=== PATIENT | male | born 1965 | race Caucasian/White ===

== ENCOUNTER 2017-12-21 08:29 | Outpatient (CLI) | payer OTHER ==
--- NOTE | 2017-12-21 16:13 | Nuclear Medicine Report ---
EXAM: BONE SCAN EXAM DATE: 12/21/2017 01:19 PM. CLINICAL HISTORY: Abnormal signal in the T12 and L4 vertebrae on lumbar spine MRI. COMPARISON: Lumbar spine MRI 11/30/2017. TECHNIQUE: Following the intravenous administration of 32.9 mCi of technetium 99m MDP and an appropri ate delay, a whole-body scan was performed in anterior and posterior projections. Site-specific spot views of the region of interest were obtained in various projections. FINDINGS: Exam Quality: Normal overall osseous radiotracer uptake. Physiological tracer uptake in bilateral col lecting systems. Skull: No focal uptake. Thorax: No focal lesions in ribs or sternum. Mild degenerative increased uptake corresponding to the right acromioclavicular joint. Pelvis: No focal lesions. Spine: No focal uptake in the cervical or thoracic or lumbar spine. Extremities: Tiny focus of increased uptake near the left lesser trochanter. IMPRESSION: 1. No abnormal spine lesions are evident. 2. Tiny focus of increased uptake near the left lesser trochanter, nonspecific. [facility] Referring Provider Line: [phone] SITE ID: [id number]
== END 2017-12-21 08:30 | disposition home or self-care (01) ==
LOC: DI 08:29
PROVIDERS: ATTEND Internal Medicine
DX: R93.8 Abnormal findings on diagnostic imaging of other specified body structures (principal)
CPT/HCPCS: 78306; A9503

== ENCOUNTER 2020-11-22 11:31 | Emergency (ER) | payer OTHER ==
[2020-11-22] MEDS ORDERED: BUFFERED LIDOCAINE 10 ML SYRINGE SUBQ STA (11:45)
--- NOTE | 2020-11-22 11:48 | ED Physician Documentation ---
History of Present Illness - Stated complaint Stated Complaint: LT TOE INJ - Chief complaint Chief Complaint: Trauma Ext - Additonal information Additional information: 55-year-old male presents the emergency department for evaluation of a left great toe injury. He was moving a dresser and the edge of his toenail was caught under the ridge of the dresser and pulled the nail back avulsing the nail bed. Did not have any blunt trauma on the toe. Denies any history of diabetes. Tetanus UTD within 1 year. On initial exam he is a partially avulsed distal great nail with bleeding around the cuticle edges. Review of Systems Constitutional: reports: Reviewed and negative Ears: reports: Reviewed and negative Nose: reports: Reviewed and negative Throat: reports: Reviewed and negative Cardiac: reports: Reviewed and negative Respiratory: reports: Reviewed and negative GI: reports: Reviewed and negative : reports: Reviewed and negative Skin: reports: Lesions (avulsion of left great toe nail) Musculoskeletal: reports: Reviewed and negative PD PAST MEDICAL HISTORY - Allergies Allergies/Adverse Reactions: Allergies Allergy/AdvReac Type Severity Reaction Status Date / Time No Known Drug Allergies Allergy Verified 11/22/20 11:39 PD ED PE EXPANDED - Derm Derm: Other (Left great nail partially avulsed distally with the distal quick exposed. However 85% of the nail is well attached to the nail bed. bleeding noted cuticle edges) Results - Vitals Vitals: Vital Signs - 24 hr 11/22/20 11:34 Temperature 36.5 C Heart Rate 72 Respiratory 14 Rate Blood Pressure 123/108 H O2 Saturation 100 Oxygen O2 Source Room air Procedures - General procedure General procedure: Left great nail was anesthetized with 1% lidocaine. Following this the distal nail was clipped to the avulsed edge of the distal quick. There is no subungual hematoma under the remaining greater nail. Routine wound care return precautions discussed. Tetanus was up-to-date last year. PD MEDICAL DECISION MAKING - ED course Complexity details: d/w patient ED course: 55-year-old male presents the emergency department with a left great nail injury sustained when moving a dresser which subsequently lifted the distal nail from the cuticle. This resulted in a partial distal nail avulsion. There is no underlying subungual hematoma. The great toe was anesthetized with 1% lidocaine and the distal nail was simply cut to the avulsed edge of the cuticle. bacitracin applied. Routine wound care and emergent return precautions were discussed. Departure - Departure Disposition: 01 Home, Self Care Clinical Impression: Nail avulsion of toe Qualifiers: Encounter type: initial encounter Qualified Code(s): S91.209A - Unspecified open wound of unspecified toe(s) with damage to nail, initial encounter Condition: Stable Record reviewed to determine appropriate education?: Yes Comments: Carlos Manuel you have what is called a partial left great nail avulsion. The distal tip of your nail was simply lifted from the distal nail bed. The nail that was lifted was trimmed away. Please apply bacitracin to the exposed nail bed edges. This will likely take a few weeks to heal. It is important that the toe be allowed to dry out to prevent any infection so be cautious if you are wearing your steel toed boots. However wearing open toed shoes may be more comfortable over the next few weeks. It is okay to wash the nail normally with warm soap and water. Pat dry then apply any antibiotic ointment. If you develop toe redness, fevers have red streaking increased pain or any concerns of infection return to the ER for a second look.
[2020-11-22] MEDS ORDERED: TETANUS/DIPHTHERIA/PERTUSSIS 0.5 ML SYRINGE IM ONE (11:52)
[2020-11-22] MEDS ORDERED: BACITRACIN ZINC OINT 1 PACKET TOP STA (12:13)
[2020-11-22 12:29] VITALS: BP 138/66
== END 2020-11-22 12:32 | disposition home or self-care (01) ==
LOC: ED 11:31
DX: S91.202A Unspecified open wound of left great toe with damage to nail, initial encounter (principal); W22.03XA Walked into furniture, initial encounter; Y93.89 Activity, other specified
CPT/HCPCS: 11730; 99281